=== PATIENT | female | born 1940 | race Hispanic/Latino ===

== ENCOUNTER 2024-10-08 16:11 | Emergency (ER) | payer MEDICARE ==
[~2024-10-08] VITALS: Ht 149.9 cm; Wt 77.1 kg
[2024-10-08 16:21] VITALS: TEMP 98
[2024-10-08] MEDS ORDERED: MEMANTINE HCL10 MG PO (16:25)
[2024-10-08] MEDS ORDERED: VITAMIN B-121000 MCG SL (16:25)
[2024-10-08] MEDS ORDERED: SIMVASTATIN40 MG PO (16:25)
[2024-10-08] MEDS ORDERED: B-1100 MG PO (16:25)
[2024-10-08] MEDS ORDERED: LISINOPRIL2.5 MG PO (16:25)
[2024-10-08] MEDS ORDERED: CETIRIZINE HCL10 MG PO (16:25)
[2024-10-08] MEDS ORDERED: METFORMIN HCL500 M1 PO (16:25)
[2024-10-08] MEDS ORDERED: DONEPEZIL HCL10 MG PO (16:25)
[2024-10-08] MEDS ORDERED: MIRTAZAPINE15 MG PO (16:25)
[2024-10-08] MEDS: ACETAMINOPHEN 325 MG TAB PO ONE (17:07)
[2024-10-08] MEDS: TETANUS/DIPHTHERIA TOX ADULT 0.5 ML SYR IM ONE (17:08)
[2024-10-08 18:19] VITALS: PULSE 68; RESP 18; O2SAT 98
== END 2024-10-08 18:38 | disposition home or self-care (01) ==
LOC: ER 16:19
DX: S00.83XA Contusion of other part of head, initial encounter (principal); S00.81XA Abrasion of other part of head, initial encounter; M25.552 Pain in left hip; M25.551 Pain in right hip; M25.562 Pain in left knee; W01.0XXA Fall on same level from slipping, tripping and stumbling without subsequent striking against object, initial encounter; Y93.01 Activity, walking, marching and hiking; Y92.89 Other specified places as the place of occurrence of the external cause; F03.90 Unspecified dementia, unspecified severity, without behavioral disturbance, psychotic disturbance, mood disturbance, and anxiety; I10 Essential (primary) hypertension; E11.9 Type 2 diabetes mellitus without complications; E78.5 Hyperlipidemia, unspecified
CPT/HCPCS: 70450; 71045; 72125; 73522; 90714; 99284